=== PATIENT | male | born 1995 | race African-American/Black ===

== ENCOUNTER 2019-11-21 22:18 | Emergency (ER) | payer MEDICAID ==
[~2019-11-21] VITALS: Ht 188 cm; Wt 67.0 kg
[2019-11-22 02:09] VITALS: BP 100/68
== END 2019-11-22 02:11 | disposition home or self-care (01) ==
LOC: ER 22:18
DX: S06.0X9A Concussion with loss of consciousness of unspecified duration, initial encounter (principal); S00.03XA Contusion of scalp, initial encounter; S00.01XA Abrasion of scalp, initial encounter; Y09 Assault by unspecified means; Y93.89 Activity, other specified; Y92.9 Unspecified place or not applicable
CPT/HCPCS: 70450; 99284; Z7610